=== PATIENT | female | born 1950 | race Caucasian/White ===

== ENCOUNTER 2016-07-19 16:23 | Emergency (ER) | payer BC, OTHER ==
[~2016-07-19] VITALS: Ht 160 cm; Wt 89.3 kg
[~2016-07-19 16:23] MED LIST: ACTOS45 MG PO; JANUMET 50/51 TABLET PO; Levothroid,Synthroid PO; Zestril,Prinivil PO; Zocor PO
[2016-07-19 17:25] LABS: HEMATOCRIT 36.4 % (36.0-46.0); MCH 31.8 PG (29.0-34.0); MCHC 34.1 G/DL (30.0-36.0); MCV 93.3 FL (83-99); MEAN PLAT.VOLUME 10.4 uM^3 (9.5-12.4); PLATELET COUNT 260 K/uL (156-360); RBC DIS.WIDTH-CV 12.9 % (11.8-14.6); RBC DIS.WIDTH-SD 42.9 % (39-53); WHITE BLOOD COUNT 6.7 K/uL (4.1-10.2)
[2016-07-19 17:33] LABS: CHLORIDE 109 mEq/L (99-109); POTASSIUM 4.1 mEq/L (3.7-5.4); SODIUM 144 mEq/L (136-147)
[2016-07-19 17:35] LABS: GLUCOSE 193 mg/dL (70-99)
[2016-07-19 17:36] LABS: ANION GAP 15 MEQ/L (2-14)
[2016-07-19 17:39] LABS: GFR ESTIMATE (CALCULATED) 59 mL/min/
[2016-07-19 17:40] LABS: UREA NITROGEN (BUN) 13 mg/dL (9-23)
[2016-07-19 19:31] LABS: ADD MIUA? YES; BILIRUBIN NEGATIVE; BLOOD LARGE; COLOR DK YELLOW ((YELLOW)); GLUCOSE (STRIP) NEGATIVE; KETONES TRACE; LEUKOCYTES MODERATE; NITRITE NEGATIVE; PROTEIN (STRIP) 30; SPECIFIC GRAVITY 1.026 (1.000-1.030); UROBILINOGEN 0.2 MG/DL (0.2-1.0)
[2016-07-19 20:13] LABS: BACTERIA RARE; CASTS NONE SEEN /LPF; CRYSTALS NONE SEEN; EPITHELIAL CELLS NONE SEEN; MUCUS NONE SEEN; RED BLOOD CELLS 40-50 /HPF (0-5); UCUL ADDED? NO
[2016-07-19] MEDS ORDERED: KEFLEX500 MG PO (21:23)
[2016-07-19] MEDS ORDERED: NORCO 5/3251 TABLET PO (21:23)
[2016-07-19] MEDS ORDERED: NAPROSYN500 MG PO (21:23)
[2016-07-19 22:12] VITALS: BP 188/79
== END 2016-07-19 22:13 | disposition home or self-care (01) ==
LOC: EME 16:23
DX: N13.2 Hydronephrosis with renal and ureteral calculous obstruction (principal); E11.9 Type 2 diabetes mellitus without complications; R31.9 Hematuria, unspecified; E78.5 Hyperlipidemia, unspecified; I10 Essential (primary) hypertension; E03.9 Hypothyroidism, unspecified; Z87.442 Personal history of urinary calculi; Z98.1 Arthrodesis status; Z87.891 Personal history of nicotine dependence; Z79.84 Long term (current) use of oral hypoglycemic drugs
CPT/HCPCS: 74176; 80048; 81003; 85027; 99281; 99284